=== PATIENT | male | born 1950 | race Caucasian/White ===

== ENCOUNTER 2018-09-13 14:18 | Inpatient (IN) | payer MEDICARE ==
[~2018-09-13] VITALS: Ht 185.4 cm; Wt 101.9 kg
[2018-09-13 15:11] LABS: EOSINOPHILS % (AUTO) 2.4 % (0.0-8.0); HEMATOCRIT 46.9 % (42-54); LYMPHOCYTES % (AUTO) 15.8 % (21.0-51.0); MEAN CORPUSCULAR HEMOGLOBIN 34.2 pg (27.0-33.0); MEAN CORPUSCULAR HGB CONC 35.5 g/dL (32.0-36.0); MEAN CORPUSCULAR VOLUME 96.4 fL (79-99); MONOCYTES % (AUTO) 5.1 % (3.0-13.0); NEUTROPHILS % (AUTO) 75.7 % (40.0-77.0); PLATELET COUNT (AUTO) 99 K/uL (130-400); RED BLOOD CELL COUNT(AUTO) 4.86 MIL/uL (4.50-6.20); RED CELL DISTRIBUTION WIDTH 13.5 % (11.0-15.5); WHITE BLOOD COUNT (AUTO) 9.6 K/uL (4.8-10.8)
[2018-09-13 15:22] LABS: CREATININE 1.3 mg/dL (0.5-1.5); POTASSIUM 3.1 mmol/L (3.5-5.1)
[2018-09-13 15:31] LABS: APPEARANCE,URINE Clear (CLEAR); BILIRUBIN,URINE Negative (NEGATIVE); COLOR,URINE Yellow (YELLOW); GLUCOSE, URINE (UA) Negative (NEGATIVE); KETONES,URINE Trace mg/dL (NEGATIVE); LEUKOCYTE ESTERASE ,URINE Negative (NEGATIVE); NITRATE,URINE Negative (NEGATIVE); OCCULT BLOOD,URINE Negative (NEGATIVE); PH,URINE 5.5 (5.0-8.0); PROTEIN,URINE Negative (NEGATIVE)
[2018-09-13 15:43] LABS: B-TYPE NATRIURETIC PEPTIDE 171 pg/mL (0-100)
[2018-09-13 15:44] LABS: BILIRUBIN,DIRECT 0.4 mg/dL (0.0-0.3); BILIRUBIN,TOTAL 1.9 mg/dL (0.2-1.0); TOTAL PROTEIN, SERUM 6.2 g/dL (6.0-8.3)
[2018-09-13 15:56] LABS: INR 1.07 (0.85-1.15); PARTIAL THROMBOPLASTIN TIME 25.7 SEC (26.3-35.5); PROTHROMBIN TIME 11.2 SEC (9.6-11.6)
[2018-09-13] MEDS ORDERED: SODIUM CHLORIDE 0.9% 1000ML 1,000 ML IV ONE (16:33)
[2018-09-13] MEDS ORDERED: POTASSIUM CHLORIDE 10% ELIXIR 20 MEQ/15 ML UDCUP ONE ×2 (16:33→23:39)
[2018-09-13] MEDS ORDERED: ALPRAZOLAM 0.25 MG TABLET ONE ×2 (18:03→23:39)
[2018-09-13] MEDS: SODIUM CHLORIDE 0.9% 1000ML 1,000 ML IV SCH (22:16)
[2018-09-13] MEDS ORDERED: LIDOCAINE HCL-MPF 1% 2ML VIAL IVP PRN (22:30)
[2018-09-13] MEDS ORDERED: ACETAMINOPHEN 325 MG TAB PO PRN (22:30)
[2018-09-13] MEDS ORDERED: POTASSIUM CHLORIDE 10MEQ/100ML 100 ML IV PRN (22:30)
[2018-09-13] MEDS ORDERED: ONDANSETRON HCL 4 MG/2 ML VIAL IV PRN (22:30)
[2018-09-13] MEDS ORDERED: POTASSIUM CHLORIDE 10% ELIXIR 20 MEQ/15 ML UDCUP PO PRN (22:30)
[2018-09-13] MEDS ORDERED: POTASSIUM CHLORIDE 20 MEQ ERTAB PO PRN (22:30)
[2018-09-13 22:49] LABS: CHOLESTEROL 119 mg/dL (<200); HDL CHOLESTEROL 113 mg/dL (29-71); LDL DIRECT 67 mg/dL (0-99); TRIGLYCERIDES 128 mg/dL (30-200)
[2018-09-14 01:57] LABS: TROPONIN I 1.1 ng/mL (0.00-0.06)
[2018-09-14 02:00] VITALS: BP 152/96
--- NOTE | 2018-09-14 02:00 | NUR ---
eye left eye with drainage, per patient has been itching and draining for days , all body rash, per patient has had rash for days, no itching, patient doesnt remember how he got it Addendum: 09/14/18 at 0245 by APRIL ROMERO RN RN Amended: Links added.
[2018-09-14] MEDS ORDERED: IPRATROPIUM/ALBUTEROL SULFATE 3 ML SOLUTION IH PRN (02:15)
--- NOTE | 2018-09-14 03:15 | NUR ---
pulmonary congestion patient with cough expectorating thick whitish secretions, cxr showing bilateral pulmonary infiltrates suggestive of pulmonary vascular congestion, troponin 1.10 myoglobin 536, cpk 2692, called hospitalist isabelle morgan informed of results and patients condition with orders
[2018-09-14 03:30] VITALS: BP 160/92
[2018-09-14] MEDS ORDERED: IPRATROPIUM/ALBUTEROL SULFATE 3 ML SOLUTION IH ONE (03:33)
--- NOTE | 2018-09-14 03:36 | NUR ---
rt RT to start new order of duo neb q4 schedule, oxygen saturation at 92 % at room air, placed on oxygen at 2 l n.c, sat recheck 97 %, encourage patient to take deep breathing exercises
[2018-09-14] MEDS ORDERED: FUROSEMIDE 10 MG/ML 4ML VIAL ONE (04:18)
--- NOTE | 2018-09-14 04:20 | NUR ---
congestion called hospitalist [employer] informed patient increase of congestion, hospitalist at bedside to assess patient with orders, lasix 40 mg ivp given as ordered
[2018-09-14] MEDS: FUROSEMIDE 10 MG/ML 4ML VIAL IV SCH (04:30)
--- NOTE | 2018-09-14 04:36 | NUR ---
hospitalist hospitalist to see and examen patient , will follow up with xray and labs
[2018-09-14 04:49] LABS: BASOPHILS % (AUTO) 0.7 % (0.0-5.0); EOSINOPHILS % (AUTO) 3.6 % (0.0-8.0); HEMATOCRIT 46.1 % (42-54); LYMPHOCYTES % (AUTO) 16.7 % (21.0-51.0); MEAN CORPUSCULAR HEMOGLOBIN 34.9 pg (27.0-33.0); MEAN CORPUSCULAR HGB CONC 35.9 g/dL (32.0-36.0); MEAN CORPUSCULAR VOLUME 97.4 fL (79-99); MONOCYTES % (AUTO) 5.4 % (3.0-13.0); NEUTROPHILS % (AUTO) 73.6 % (40.0-77.0); NUCLEATED RED BLOOD CELLS 0.1 % (0.0-0.19); PLATELET COUNT (AUTO) 95 K/uL (130-400); RED BLOOD CELL COUNT(AUTO) 4.74 MIL/uL (4.50-6.20); RED CELL DISTRIBUTION WIDTH 13.4 % (11.0-15.5); WHITE BLOOD COUNT (AUTO) 9.6 K/uL (4.8-10.8)
[2018-09-14 05:20] LABS: CREATININE 1.2 mg/dL (0.5-1.5)
[2018-09-14 05:24] LABS: TROPONIN I 1.02 ng/mL (0.00-0.06)
[2018-09-14] MEDS ORDERED: POTASSIUM CHLORIDE 20MEQ/100ML 100 ML IV ONE (05:54)
[2018-09-14] MEDS: LEVOFLOXACIN 500 MG/D5W 100 ML 100 ML IV SCH (05:57)
[2018-09-14] MEDS: IPRATROPIUM/ALBUTEROL SULFATE 3 ML SOLUTION IH SCH ×10 (06:12→22:00)
[2018-09-14 08:00] VITALS: BP 150/93
[2018-09-14] MEDS: ASPIRIN 81MG TAB.CHEW PO SCH (08:12)
[2018-09-14] MEDS: ATORVASTATIN CALCIUM 20 MG TABLET PO SCH (08:12)
[2018-09-14] MEDS: FAMOTIDINE 20MG TAB 20 MG TAB PO SCH ×2 (08:12→21:00)
[2018-09-14] MEDS: METOPROLOL TARTRATE 25 MG TAB PO SCH ×2 (08:12→21:00)
[2018-09-14] MEDS: ALPRAZOLAM 0.25 MG TABLET PO PRN ×2 (08:13→18:11)
[2018-09-14] MEDS ORDERED: ENOXAPARIN SODIUM 40 MG/0.4 ML SYRINGE SQ SCH (09:00)
[2018-09-14] MEDS: SODIUM CHLORIDE 0.9% 1000ML 1,000 ML IV SCH (09:37)
[2018-09-14 12:00] VITALS: BP 142/76
[2018-09-14 12:45] LABS: TROPONIN I 0.82 ng/mL (0.00-0.06)
[2018-09-14 16:00] VITALS: BP 135/61
--- NOTE | 2018-09-14 18:43 | NUR ---
maxine keen met with patient and states resides [place] alone, recently lost his , has a neighbor friend that assists him with transport. also has his POA that lives in [facility] ph# [phone]. and [facility] has provided POA info in the past. pt has been weaker lately and will need a walker at time of dc. informed of md orders for snf level of care, pt states he does not want to go to any rehab, he just wants to go home at time of dc. and will agree to home health PT only. informed that PT will be working with him here at hospital and do evaluation. pt verbalizes understanding. Addendum: 09/14/18 at 1849 by VALDO LESLIE CM Amended: Links added.
[2018-09-14 20:00] VITALS: BP_SYST 127; BP_DIAS 9; BP_DIAS 91
[2018-09-14] MEDS: HYDROCORTISONE 0.5% 30 GM OINT TP SCH (21:00)
[2018-09-15 00:06] VITALS: BP 110/56
[2018-09-15] MEDS: IPRATROPIUM/ALBUTEROL SULFATE 3 ML SOLUTION IH SCH ×6 (01:09→13:28)
[2018-09-15 04:00] VITALS: BP 132/65
[2018-09-15] MEDS: LEVOFLOXACIN 500 MG/D5W 100 ML 100 ML IV SCH (04:28)
[2018-09-15] MEDS: FUROSEMIDE 10 MG/ML 4ML VIAL IV SCH (04:28)
[2018-09-15] MEDS: SODIUM CHLORIDE 0.9% 1000ML 1,000 ML IV SCH (05:37)
[2018-09-15 07:48] VITALS: BP 141/82
[2018-09-15] MEDS: ASPIRIN 81MG TAB.CHEW PO SCH (07:56)
[2018-09-15] MEDS: METOPROLOL TARTRATE 25 MG TAB PO SCH (07:56)
[2018-09-15] MEDS: FAMOTIDINE 20MG TAB 20 MG TAB PO SCH (07:56)
[2018-09-15] MEDS: ALPRAZOLAM 0.25 MG TABLET PO PRN (07:56)
[2018-09-15] MEDS: ATORVASTATIN CALCIUM 20 MG TABLET PO SCH (07:56)
[2018-09-15] MEDS: HYDROCORTISONE 0.5% 30 GM OINT TP SCH (07:57)
[2018-09-15] MEDS ORDERED: ALPR1TAB7 PO (08:04)
[2018-09-15] MEDS ORDERED: NICOTINE 21 MG/ 24 HR PATCH TD SCH (09:45)
[2018-09-15] MEDS ORDERED: ALPRAZOLAM 1 MG TAB PO PRN (09:45)
[2018-09-15 11:00] VITALS: BP 122/76
[2018-09-15] MEDS ORDERED: POTA10TA14 PO (11:43)
[2018-09-15] MEDS ORDERED: LOSA50TA64 PO (11:43)
[2018-09-15] MEDS ORDERED: PRED-409 PO (11:43)
[2018-09-15] MEDS ORDERED: HYDR25TA PO (11:43)
[2018-09-15] MEDS ORDERED: TRAZ-221 PO (11:43)
[2018-09-15] MEDS ORDERED: FLUT16H EN (11:43)
[2018-09-15] MEDS ORDERED: TRAM50TA4 PO (11:43)
[2018-09-15] MEDS ORDERED: HYDR-4060 PO (11:43)
[2018-09-15] MEDS ORDERED: DULO30CA51 PO (11:43)
[2018-09-15] MEDS ORDERED: ATOR20TA65 PO (11:43)
[2018-09-15] MEDS ORDERED: FINA5TAB41 PO (11:43)
--- NOTE | 2018-09-15 18:04 | NUR ---
PATIENT VERY ANXIOUS, STATES HE WANTS TO GO HOME, NO DC ORDER PATIENT HAS UNSTEADY GAIT, ADMITS FEELING DIZZY AND LIGHTHEADED, MD INFORMED, EXPLAINED TO PATIENT OF IMPORTANCE ADHERING WITH MD ORDERS, CK REMAINS ELEVATED, PATIENT LIVES ALONE, HAS FALLEN 10X IN 2 WEEKS, NO ASSISTIVE DEVICES AVAILABLE FOR HOME USE, PATIENT DOES NOT HAVE A RIDE HOME OR A ANAND TO ENTER HOME. ALYSSA BRITO RN INFORMED, PATIENT STATES HE "FULLY UNDERSTANDS THE RISKS OF LEAVING AGAINST MD ORDERS, AND I ACCEPT THAT RESPONSIBILITY" EMERGENCY CONTACT IS NEIGHBOR, SPOKE WITH STATES HE DOES NOT THINK PATIENT IS READY TO GO HOME, FEELS HE NEEDS REHABILITATION. PT DENIES NEED FOR ASSISTANCE, PLACED CALL TO [facility], AMA FORM SIGNED, 2 IV CATHETERS REMOVED, INTACT, NO BLEEDING, PATIENT DC AMA. AWARE.
== END 2018-09-15 15:45 | disposition left against medical advice (07) | DRG 558 ==
LOC: EDH 14:18 → EDHIP 21:29 → OBSVTOIN 21:29 → 4BH 22:56 → EDHIP 23:57 → 4BH 09-14 02:11
PROVIDERS: ADMIT Hospitalist; ATTEND Hospitalist
DX: M62.82 Rhabdomyolysis (principal); R74.8 Abnormal levels of other serum enzymes; R29.6 Repeated falls; R53.81 Other malaise; E87.6 Hypokalemia; E78.5 Hyperlipidemia, unspecified; F17.290 Nicotine dependence, other tobacco product, uncomplicated; I11.9 Hypertensive heart disease without heart failure; Z53.21 Procedure and treatment not carried out due to patient leaving prior to being seen by health care provider
CPT/HCPCS: 36415; 70450; 71045; 71046; 80048; 80061; 80076; 81003; 82550; 83605; 83735; 83874; 83880; 84443; 84484; 85025; 85610; 85730; 87040; 93005; 94640; 94664; 97039; G0378; J1940; J1956; J2405; J3480; J3490; J7030